=== PATIENT | female | born 1960 ===

== ENCOUNTER 2021-03-22 12:58 | Outpatient (CLI) | payer OTHER ==
[2021-03-22] MEDS ORDERED: ALBUTEROL 2.5 MG/3 ML NEBU IH ONE (14:06)
== END 2021-03-22 12:59 | disposition home or self-care (01) ==
LOC: PF 12:58
PROVIDERS: ATTEND Internal Medicine
DX: Z02.71 Encounter for disability determination (principal)
CPT/HCPCS: 94640; A9270